=== PATIENT | female | born 1970 | race Caucasian/White ===

== ENCOUNTER → 2016-03-30 | Outpatient (CLI) | payer OTHER ==
--- NOTE | 2016-03-30 14:03 | P.PN ---
Subjective This is follow-up visit for this patient with a history of severe and chronic neck pain and low back pain secondary to, lumbar spondylosis facet arthropathy, and cervical spondylosis , cervicogenic headache ,we have done interventional pain management injection, radiofrequency ablation of the medial branch cervical area and this helped her neck pain significantly, done radiofrequency ablation of the medial branch lumbar area, and is currently on pain medications 1-[place] 7.5/325 every 6 hours 2- Ultram milligrams 3 times a day 3- Flexeril 10 mg 3 times a day 4-Lyrica Patient denies any side effects of the medication, denies excessive drowsiness or sleepiness, denies suicidal ideation, and reports that the current pain medication is NOT helping To control the pain and improve activity of daily living , currently she is complaining of severe neck pain and headache, Physical Examinations : 1-Constitutiona : Cooperative , not in acute distress . 2-HEENT : nech ; supple , no Lymphadenopathy , no Thyromegaly , normal thyroid size . eyes : no ptosis , no icterus, no photophobia . ENT : normal of hearing , normal oropharynx , no Thrush . 3- Respiratory : Chest clear to auscultations Bilaterally , no wheezing , no Rhonchi . 4- Cardiovascular : regular rate and rhythem , S1 , S2 , no S3 , no S4. 5- Gastrointestinal : abdomen soft no tenderness , bowel sounds positive all four quadrents , no organomegally . 6- Genitourinary : Defferred . 7- neurologic : Cranial nerve II to XII intact , no focal neurological deffecit . 8-psychatric : alert , oriented X 3 , appropriate affect , intact judgment and insight . 9-Lymphatic : no Lymphadenopathy . 10- musculoskeltal : exams of the cervical spine = motor strength normal bilateral upper extremities facet loading test cervical area positive. Positive tenderness over the occipital nerve bilaterally exams of the Lumber spine = motor strength lower extremities ,thigh and legs .5/5 deep tendon reflexes : normal Knee Jerk , normal ankle Jerk . lumber facet Loading Test positive strait leg raising test positive at 30 degree , RT ,LT , Fabere test positive RT and positive LT . Range of motion: Range of motion in flexion of the lumbar spine 30 degrees Range of motion range of motion of extension of the lumbar spine 10 Assessment and plan = - Chronic low back pain secondary to, lumbar spondylosis with facet arthropathy without myelopathy , -Chronic neck pain and Congenital cervical spondylosis/cervicogenic headache/ occipital neuralgia. Status post radiofrequency ablation of the medial branch cervical area done more than 6 months ago patient had good pain relief and currently she needed to repeat the radiofrequency ablation of the medial branch cervical area - diagnoses, prognosis, and treatment options including but not limited to physical therapy, surgical interventions, interventional therapies and medication management including narcotics and adjuvant medication were discussed with the patient and all questions answered to the patient's satisfaction. -medication refile = she is getting medications refilled from her primary care. -procedure= scheduled patient to have radiofrequency ablation of the medial branch cervical area C2-3/ C3-4 and radiofrequency ablation of the third occipital nerve, we'll start the left side first then we would do with a right- sided later on. Objective - Vital Signs Vital signs: Intake & Output 03/29/16 03/30/16 03/30/16 18:59 06:59 18:59 Weight 78.018 kg
== END | disposition home or self-care (01) ==
CPT/HCPCS: 99211

== ENCOUNTER 2016-05-12 07:57 | Day surgery (SDC) | payer OTHER ==
[2016-05-07 15:21] VITALS: BMI 28.8
[2016-05-12] MEDS ORDERED: LACTATED RINGERS 1,000 ML IV ONE (08:45)
[2016-05-12 08:57] VITALS: TEMP 98.1
[2016-05-12] MEDS ORDERED: LIDOCAINE 1% 20 ML VIAL (10MG/ML) FOR IV START INTRADERMA ONE (09:04)
[2016-05-12] MEDS ORDERED: DEXAMETHASONE SOD PHOS (MDV) 100 MG/10 ML VIAL ONE (09:40)
[2016-05-12] MEDS ORDERED: MIDAZOLAM 2 MG/2 ML VIAL ONE (09:40)
[2016-05-12] MEDS ORDERED: fentaNYL (PF) 50 MCG/ML 2 ML AMP ONE (09:40)
[2016-05-12] MEDS ORDERED: IV FLUID CONTINUATION 1,000 ML IV ONE (10:31)
--- NOTE | 2016-05-12 10:38 | FL ---
Fluoroscopy INDICATION: Pain FINDINGS: Fluoroscopy time: 37 seconds. Images obtained: 4. IMPRESSIONS: 1. Documentation of fluoroscopy.
[2016-05-12 10:40] VITALS: PULSE 77; RESP 18
[2016-05-12 10:48] VITALS: BP 120/74
--- NOTE | 2016-05-12 11:09 | P.PCN ---
Date of Procedure: 05/12/16 Surgeon: Deion Ramachandran Pathology: none sent Condition: stable Disposition: PACU Description of Procedure: PREOPERATIVE DIAGNOSIS: Cervical spondylosis without myelopathy and facet arthropathy. POSTOPERATIVE DIAGNOSIS: Cervical spondylosis without myelopathy and facet arthropathy. PROCEDURES: Radiofrequency thermocoagulation, C2-C3, C3-C4 medial branches and third occipital nerve, with fluoroscopic guidance, left side. ANESTHESIA: Local with 1% lidocaine; conscious sedation EBL: Minimal PROCEDURE INDICATION: The patient with neck pain secondary to cervical arthropathy who had more than 50% relief of her pain with previous diagnostic cervical medial branch block. No use of blood thinners. Patient has had successful cervical RFAs in the past. PROCEDURE DESCRIPTION / TECHNIQUE: The patient was seen and identified in the preoperative area. Risks, benefits, complications, and alternatives were discussed with the patient (with risks including but not limited to bleeding, infection, nerve damage, incomplete pain relief, and allergic reactions to medications), the patient agreed to proceed with the procedure and signed the informed consent after all questions were answered. IV was started. Vital signs remained stable throughout the procedure. Patient was taken to the OR and time out was completed. The patient was placed in the prone position on the procedure table. A pillow was placed under the patients chest to increase the cervical interlaminar space. The cervical area was prepped and draped in the usual sterile fashion. Critical pause was taken. Vital signs were closely monitored during the procedure. Conscious sedation was used during the procedure to decrease patients anxiety. Using cross-table lateral fluoroscopy, the centroid of the trapezoid of C2, C3, and C4 were identified, marked, and localized with 1% lidocaine. Subsequently, a 20 gauge 50-mm radiofrequency cannula with a 5-mm active tip was advanced guided by fluoroscopy to the centroid of the trapezoid of C3 and C4 and to the facet joint at C2/C3. Needle tip position was confirmed at the centroid of the trapezoids and at the facet joint with anteroposterior fluoroscopy. Each site then underwent sensory testing at 50 Hz and 0 to 1 volt and motor testing at 2 Hz and 0 to 3 volt with local stimulation, but no radicular symptoms down the arm. Thereafter all three sites underwent radiofrequency thermocoagulation at 80 degrees celsius for 90 seconds after injecting 0.5 ml of PF lidocaine 1%. After thermocoagulation, 1 ml of the block solution containing Decadron 10 mg and 2 mL of preservative-free normal saline was injected at each level after negative aspiration of CSF and blood and with no paresthesias. Cannulas were retracted while injecting lidocaine 1% until the needle is out. Skin was cleansed and bandages were applied. COMPLICATIONS: No acute complications. COMMENTS: DISPOSITION / PLANS: The patient was placed in a supine position and transferred to the recovery area in a stable condition for observation and was discharged from the recovery room after meeting discharge criteria. Home discharge instructions given to the patient by the staff. The patient was reexamined prior to discharge. The patient will schedule a follow up in the clinic in 2-4 weeks. Of note, this patient did have a negative urine drug screen from Dr. Hagen, who now refuses to prescribe her medications as a result. She is currently on 8 tramadol pills/day and four [place] pills/day for a total of 12 pain pills per day, which in my opinion is far too many. I noted her negative UDS that was faxed from Dr. Hagen's office and did not write her any opioid medications today. Patient does have a significant psychiatric history and takes multiple antidepressant medications. Patient denies any thoughts of suicidal or homicidal ideation today. I did also tell her to discuss serotonin syndrome with her psychiatrist due to the fact that she takes Prozac, Elavil, and tramadol all simultaneously and her serotonin levels could potentially be increased to dangerous levels.
== END 2016-05-12 10:59 | disposition home or self-care (01) ==
LOC: ORPAIN 07:57
PROVIDERS: ATTEND Anesthesiology
DX: G89.29 Other chronic pain (principal); M47.812 Spondylosis without myelopathy or radiculopathy, cervical region; M46.92 Unspecified inflammatory spondylopathy, cervical region; I10 Essential (primary) hypertension; F31.9 Bipolar disorder, unspecified; K21.9 Gastro-esophageal reflux disease without esophagitis; Z88.6 Allergy status to analgesic agent; Z88.8 Allergy status to other drugs, medicaments and biological substances; Z79.891 Long term (current) use of opiate analgesic; Z79.1 Long term (current) use of non-steroidal anti-inflammatories (NSAID); Z79.899 Other long term (current) drug therapy
CPT/HCPCS: 81025; 64633; 64634 ×2; 99152; 99153; J2250; J3010; J1100

== ENCOUNTER → 2016-06-10 | Outpatient (CLI) | payer OTHER ==
[2016-06-10 12:45] VITALS: BP 119/75; PULSE 85; RESP 18; TEMP 98.4
--- NOTE | 2016-06-10 13:05 | P.PN ---
Progress Note - Text Patient returns for followup for chronic neck pain with radiation to bilateral upper extremities, R > L. Patient recently underwent L cervical RFA, which provided her approximately one month's relief. Patient is not currently receiving any pain medications secondary to the fact that she had negative urine drug screen at Dr. Hagen's office. Patient denies adverse drug effects from medications. Today, pt denies new-onset weakness, bowel/bladder incontinence, or any other signs or symptoms of cauda equina syndrome. In addition to above, 13-point review of systems is also negative for chest pain , shortness of breath, changes in vision, changes in hearing, new onset weakness , abdominal pain, diarrhea, extreme fatigue, malaise, fever, skin changes, homicidal or suicidal ideation, or bowel or bladder incontinence. 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 cervical radiculopathy 2. cervical spondylosis without myelopathy 3. cervical DDD Plan: 1. Counseling: The patient was counseled extensively on BODY MASS INDEX, EXERCISE, and ALCOHOL use. Specifically, the patient was instructed regarding the importance of smoking cessation, obesity, and exercise in the context of both chronic pain and overall health. 2. Opioids: none prescribed 3. Procedures: right cervical RFA as left side completed 4. Consultations: None 5. Investigations: None 6. Medications: None 7. Disposition: f/u for procedure as scheduled; I have continued for several months to not prescribe this patient opioids because of the negative urine drug screen at her PCP's office, which is in our records. PQRS measures: 1-Patient's medications are documented in the chart. 2-Tobacco use is negative. 3-Patient has not had a pneumococcal vaccine. 4-Advanced care planning discussed, patient gave. 5-Opioid contract signed with the patient. 6-Pain positive, follow-up visit or procedure scheduled 7-Patient's blood pressure measured and documented; elevated and instructed to f /u with PCP. 8-Patient's weight was measured, and body mass index ABOVE the normal limits, and counseling was done. Patient instructed to follow up with PCP. 9-Patient WAS NOT identified as an unhealthy alcohol user.
== END | disposition home or self-care (01) ==
LOC: PNWHC3 12:14
PROVIDERS: ATTEND Anesthesiology
DX: M50.10 Cervical disc disorder with radiculopathy, unspecified cervical region (principal); M47.22 Other spondylosis with radiculopathy, cervical region
CPT/HCPCS: 99211

== ENCOUNTER 2016-07-21 06:35 | Day surgery (SDC) | payer OTHER ==
[2016-07-20 09:15] VITALS: BMI 29.8
[2016-07-21 07:29] VITALS: RESP 18; TEMP 97.5
[2016-07-21] MEDS ORDERED: LIDOCAINE 1% 20 ML VIAL (10MG/ML) FOR IV START INTRADERMA ONE (07:44)
[2016-07-21] MEDS ORDERED: LACTATED RINGERS 1,000 ML IV SCH (07:45)
[2016-07-21] MEDS ORDERED: DEXAMETHASONE SOD PHOSPHATE 10 MG/ML 1 ML VIAL ONE (07:47)
[2016-07-21] MEDS ORDERED: MIDAZOLAM 2 MG/2 ML VIAL ONE (07:47)
[2016-07-21] MEDS ORDERED: fentaNYL (PF) 50 MCG/ML 2 ML AMP ONE (07:47)
--- NOTE | 2016-07-21 08:19 | P.PCN ---
Date of Procedure: 07/21/16 Preoperative Diagnosis: Postoperative Diagnosis: Procedure(s) Performed: Implants: Surgeon: Deion Ramachandran Pathology: none sent Condition: stable Disposition: PACU Indications for Procedure: Operative Findings: Description of Procedure: PREOPERATIVE DIAGNOSIS: Cervical spondylosis without myelopathy and facet arthropathy. POSTOPERATIVE DIAGNOSIS: Cervical spondylosis without myelopathy and facet arthropathy. PROCEDURES: Radiofrequency thermocoagulation, C2-C3, C3-C4 medial branches and third occipital nerve, with fluoroscopic guidance, right side. ANESTHESIA: Local with 1% lidocaine; conscious sedation EBL: Minimal PROCEDURE INDICATION: The patient with neck pain secondary to cervical arthropathy who had more than 50% relief of her pain with previous diagnostic cervical medial branch block. No use of blood thinners. Patient has had successful cervical RFAs in the past, presents for repeat L CRFA today. PROCEDURE DESCRIPTION / TECHNIQUE: The patient was seen and identified in the preoperative area. Risks, benefits, complications, and alternatives were discussed with the patient (with risks including but not limited to bleeding, infection, nerve damage, incomplete pain relief, and allergic reactions to medications), the patient agreed to proceed with the procedure and signed the informed consent after all questions were answered. IV was started. Vital signs remained stable throughout the procedure. Patient was taken to the OR and time out was completed. The patient was placed in the prone position on the procedure table. A pillow was placed under the patients chest to increase the cervical interlaminar space. The cervical area was prepped and draped in the usual sterile fashion. Critical pause was taken. Vital signs were closely monitored during the procedure. Conscious sedation was used during the procedure to decrease patients anxiety. Using cross-table lateral fluoroscopy, the centroid of the trapezoid of C2, C3, and C4 were identified, marked, and localized with 1% lidocaine. Subsequently, a 21 gauge 100-mm radiofrequency cannula with a 5-mm active tip was advanced guided by fluoroscopy to the centroid of the trapezoid of C3 and C4 and to the facet joint at C2/C3. Needle tip position was confirmed at the centroid of the trapezoids and at the facet joint with anteroposterior fluoroscopy. Each site then underwent sensory testing at 50 Hz and 0 to 1 volt and motor testing at 2 Hz and 0 to 3 volt with local stimulation, but no radicular symptoms down the arm. Thereafter all three sites underwent radiofrequency thermocoagulation at 80 degrees celsius for 90 seconds after injecting 0.5 ml of PF lidocaine 1%. After thermocoagulation, 1 ml of the block solution containing Decadron 10 mg and 2 mL of preservative-free normal saline was injected at each level after negative aspiration of CSF and blood and with no paresthesias. Cannulas were retracted while injecting lidocaine 1% until the needle is out. Skin was cleansed and bandages were applied. COMPLICATIONS: No acute complications. COMMENTS: DISPOSITION / PLANS: The patient was placed in a supine position and transferred to the recovery area in a stable condition for observation and was discharged from the recovery room after meeting discharge criteria. Home discharge instructions given to the patient by the staff. The patient was reexamined prior to discharge and there were no issues. The patient will schedule a follow up in the clinic in 2-4 weeks as both cervical RFAs have been completed.
--- NOTE | 2016-07-21 08:36 | FL ---
Fluoroscopy History: CERVICAL RF RIGHT SIDE cervical rf. 16 sec fl time.
[2016-07-21] MEDS ORDERED: IV FLUID CONTINUATION 500 ML IV ONE (08:37)
[2016-07-21 09:01] VITALS: BP 117/80; PULSE 81
== END 2016-07-21 09:05 | disposition home or self-care (01) ==
LOC: ORPAIN 06:35
PROVIDERS: ATTEND Anesthesiology
DX: M47.812 Spondylosis without myelopathy or radiculopathy, cervical region (principal); M46.92 Unspecified inflammatory spondylopathy, cervical region
CPT/HCPCS: 64633; 64634 ×2; J2250; J1100; J3010

== ENCOUNTER → 2016-08-18 | Outpatient (CLI) | payer OTHER ==
[2016-08-18 12:00] VITALS: BP 114/78; PULSE 87; RESP 16; TEMP 97.7
--- NOTE | 2016-08-18 12:16 | P.PN ---
Progress Note - Text Patient returns for followup for chronic neck pain with radiation to bilateral upper extremities, R > L. Patient recently underwent bilateral cervical RFA, which provided her approximately 1-2 months' relief. Patient is not currently receiving any pain medications secondary to the fact that she had negative urine drug screen at Dr. Hagen's office. Patient denies adverse drug effects from medications. Today, pt denies new-onset weakness, bowel/bladder incontinence, or any other signs or symptoms of cauda equina syndrome. Patient is currently about to undergo stellate ganglion blocks in [place] with a different pain physician but is requesting to have lumbar epidural steroid injection done to help with her back, as this has not been done before In addition to above, 13-point review of systems is also negative for chest pain , shortness of breath, changes in vision, changes in hearing, new onset weakness , abdominal pain, diarrhea, extreme fatigue, malaise, fever, skin changes, homicidal or suicidal ideation, or bowel or bladder incontinence. Gen: WDWN, AAOx3, NAD HEENT: NCAT, EOMI, hearing grossly normal Pulm: resp unlabored Abd: soft, NT, ND Neck: supple, trachea midline ROM in flexion cervical spine: reduced ROM in extension cervical spine: reduced Cervical paravertebral tenderness: bilateral Cervical Facet tenderness: bilateral Spurling's: + L side Upper extremity: decreased police lieutenant strength on R > L Lumbar spine: TTP paravertebral area, decreased ROM flexion/extension, positive SLR RLE at 10 degrees Neuro: CN II-XII grossly intact, muscle strength lower extremities PRESERVED Assessment: 1. cervical radiculopathy 2. cervical spondylosis without myelopathy 3. cervical DDD 4. lumbar radiculopathy Plan: 1. Counseling: The patient was counseled extensively on BODY MASS INDEX, EXERCISE, and ALCOHOL use. Specifically, the patient was instructed regarding the importance of smoking cessation, obesity, and exercise in the context of both chronic pain and overall health. 2. Opioids: none prescribed 3. Procedures: LESI in 4-6 weeks if patient's new pain specialist is unable to perform this procedure for her, 4. Consultations: None 5. Investigations: None 6. Medications: None 7. Disposition: f/u for procedure as scheduled or as needed if pain physician in [place] can do LESI for her. PQRS measures: 1-Patient's medications are documented in the chart. 2-Tobacco use is negative. 3-Patient has not had a pneumococcal vaccine. 4-Advanced care planning discussed, patient gave. 5-Opioid contract signed with the patient. 6-Pain positive, follow-up visit or procedure scheduled 7-Patient's blood pressure measured and documented; elevated and instructed to f /u with PCP. 8-Patient's weight was measured, and body mass index ABOVE the normal limits, and counseling was done. Patient instructed to follow up with PCP. 9-Patient WAS NOT identified as an unhealthy alcohol user.
== END ==
LOC: PNWHC3 11:40
PROVIDERS: ATTEND Anesthesiology
DX: M47.22 Other spondylosis with radiculopathy, cervical region (principal); M50.10 Cervical disc disorder with radiculopathy, unspecified cervical region; M54.16 Radiculopathy, lumbar region; G89.29 Other chronic pain; Z79.891 Long term (current) use of opiate analgesic
CPT/HCPCS: 99211